=== PATIENT | male | born 1985 ===

== ENCOUNTER 2023-07-02 15:50 | Outpatient (REF) | payer BC, SELFPAY ==
[2023-07-02 21:37] LABS: C Diff PCR Negative (Negative)
[2023-07-03 22:47] LABS: Campylobacter PCR Negative (Negative); Salmonella PCR Negative (Negative); Shiga Toxin PCR Negative (Negative); Shigella/Enteroinvasive Ecoli Negative (Negative)
== END 2023-07-02 15:51 | disposition home or self-care (01) ==
LOC: LBN 15:50
PROVIDERS: Visit Provider Physician Assistant Medical
DX: R19.7 Diarrhea, unspecified (principal)
CPT/HCPCS: 87329; 87493; 87505; 87177